=== PATIENT | female | born 1980 | race Caucasian/White ===

== ENCOUNTER 2016-08-18 11:07 | Emergency (ER) | payer SELFPAY ==
[~2016-08-18] VITALS: Ht 167.6 cm; Wt 70.0 kg
[2016-08-18] MEDS ORDERED: NAPROSYN500 MG PO (13:34)
[2016-08-18 13:45] VITALS: BP 112/70
== END 2016-08-18 13:45 | disposition home or self-care (01) | DRG 605 ==
LOC: ED 11:07
DX: S90.32XA Contusion of left foot, initial encounter (principal); W22.8XXA Striking against or struck by other objects, initial encounter; Y92.009 Unspecified place in unspecified non-institutional (private) residence as the place of occurrence of the external cause

== ENCOUNTER 2017-06-26 17:29 | Emergency (ER) | payer OTHER ==
[~2017-06-26] VITALS: Ht 167.6 cm; Wt 72.4 kg
[~2017-06-26 17:29] MED LIST: NAPROSYN500 MG PO
[2017-06-26 18:03] LABS: URINE BILIRUBIN - DIPSTICK NEGATIVE (NEGATIVE); URINE BLOOD DIPSTICK NEGATIVE (NEGATIVE); URINE CLARITY CLEAR; URINE COLOR YELLOW; URINE GLUCOSE - DIPSTICK NEGATIVE (NEGATIVE); URINE KETONE NEGATIVE (NEGATIVE); URINE LEUK ESTERASE NEGATIVE (Negative); URINE NITRITE - DIPSTICK NEGATIVE (Negative); URINE PH 5.5 (4.5-8.0); URINE PROTEIN - DIPSTICK NEGATIVE (NEG-TRACE); URINE UROBILINOGEN - DIPSTICK 0.2 E.U./dL (0.2)
[2017-06-26] MEDS ORDERED: BACTRIM DS1 TAB PO (18:11)
[2017-06-26] MEDS ORDERED: PYRIDIUM200 MG PO (18:11)
[2017-06-26 18:34] VITALS: BP 127/76
== END 2017-06-26 18:34 | disposition home or self-care (01) | DRG 690 ==
LOC: ED 17:29
PROVIDERS: Emergency Medicine
DX: N34.2 Other urethritis (principal); R30.0 Dysuria; R50.9 Fever, unspecified; R39.15 Urgency of urination

== ENCOUNTER 2020-07-24 | Emergency (ER) | payer SELFPAY ==
[~2020-07-24] MED LIST changes: +BACTRIM DS1 TAB PO; +PYRIDIUM200 MG PO
[2020-07-24] MEDS ORDERED: KEFLEX500 M1 PO (12:12)
[2020-07-24] MEDS ORDERED: BACTRIM DS1 TAB PO (12:12)
== END 2020-07-24 12:32 | disposition home or self-care (01) | DRG 603 ==
DX: L02.31 Cutaneous abscess of buttock (principal); B95.62 Methicillin resistant Staphylococcus aureus infection as the cause of diseases classified elsewhere; F17.210 Nicotine dependence, cigarettes, uncomplicated

== ENCOUNTER 2021-01-04 08:58 | Emergency (ER) | payer SELFPAY ==
[~2021-01-04] VITALS: Ht 167.6 cm; Wt 74.0 kg
[~2021-01-04 08:58] MED LIST changes: +KEFLEX500 M1 PO
[2021-01-04 10:00] LABS: URINE BILIRUBIN - DIPSTICK NEGATIVE (NEGATIVE); URINE BLOOD DIPSTICK NEGATIVE (NEGATIVE); URINE COLOR YELLOW; URINE GLUCOSE - DIPSTICK NEGATIVE (NEGATIVE); URINE KETONE NEGATIVE (NEGATIVE); URINE LEUK ESTERASE NEGATIVE (NEGATIVE); URINE PROTEIN - DIPSTICK NEGATIVE (NEG-TRACE); URINE SPECIFIC GRAVITY <=1.005; URINE UROBILINOGEN - DIPSTICK 0.2 E.U./dL (0.2)
[2021-01-04 10:01] LABS: URINE NITRITE - DIPSTICK NEGATIVE (Negative)
[2021-01-04 10:25] LABS: IMMATURE GRANULOCYTES 0.2 % (0.0-5.0); MEAN CELL VOLUME 97.2 fL CALC (80.0-100.0); MEAN CORPUSCULAR HGB 32.2 pG CALC (26.0-32.0); MEAN CORPUSCULAR HGB CONC 33.1 g/dL CAL (32.0-36.0); NEUT# 5.92 thou/uL (2.00-7.15); RED BLOOD COUNT 4.26 mill/uL (4.20-5.60); RED CELL DISTRI WIDTH 11.6 % (11.5-15.5)
[2021-01-04 10:26] LABS: HEMATOCRIT 41.4 % (37.0-47.0); HEMOGLOBIN 13.7 g/dl (12.0-16.0)
[2021-01-04 10:44] LABS: ALBUMIN 4.8 g/dL (3.2-5.0); ALKALINE PHOSPHATASE 71 u/l (38-126); AMYLASE 69 u/l (30-110); BILIRUBIN, TOTAL 0.5 mg/dL (0.0-1.4); BUN 14 mg/dL (7-17); BUN/CREATININE RATIO 20 (12-20 (CALC)); CHLORIDE 104 mmol/l (95-108); CREATININE 0.7 mg/dL (0.5-1.0); GFR > 60 ML/MIN (>=60 (CALC)); GFR FOR AFR.AMER. > 60 ML/MIN (>=60 (CALC)); LIPASE 62 u/l (23-300); POTASSIUM 3.8 mmol/l (3.5-5.1); SGOT/AST 20 u/l (14-36); SODIUM 137 mmol/l (137-146); TOTAL PROTEIN 7.7 g/dL (6.3-8.2)
[2021-01-04 10:46] LABS: ANION GAP 10 (6-22 (CALC)); CARBON DIOXIDE 27 mmol/l (22-30)
[2021-01-04] MEDS ORDERED: ULTRAM50 MG PO (15:09)
[2021-01-04 15:23] VITALS: BP 130/58
== END 2021-01-04 15:24 | disposition home or self-care (01) | DRG 761 ==
LOC: ED 08:58
DX: N83.201 Unspecified ovarian cyst, right side (principal); F17.200 Nicotine dependence, unspecified, uncomplicated; Z87.440 Personal history of urinary (tract) infections; Z20.822 Contact with and (suspected) exposure to COVID-19
CPT/HCPCS: Q9967

== ENCOUNTER 2022-08-25 19:02 | Emergency (ER) | payer SELFPAY ==
[~2022-08-25] VITALS: Ht 167.6 cm; Wt 71.6 kg
[~2022-08-25 19:02] MED LIST changes: +ULTRAM50 MG PO
[2022-08-25] MEDS ORDERED: CLINDAMYCIN300 M1 PO (23:27)
[2022-08-25] MEDS ORDERED: MOTRIN800 MG PO (23:27)
[2022-08-25 23:56] VITALS: BP 118/69
== END 2022-08-25 23:56 | disposition home or self-care (01) | DRG 605 ==
LOC: ED 19:02
PROC: 0H9QXZZ Drainage of Finger Nail, External Approach (ICD-10-PCS; principal; 2022-08-25)
DX: S60.121A Contusion of right index finger with damage to nail, initial encounter (principal); X58.XXXA Exposure to other specified factors, initial encounter

== ENCOUNTER 2022-09-25 07:43 | Emergency (ER) | payer OTHER ==
[~2022-09-25] VITALS: Ht 167.6 cm; Wt 73.2 kg
[~2022-09-25 07:43] MED LIST changes: +CLINDAMYCIN300 M1 PO; +MOTRIN800 MG PO
[2022-09-25] MEDS ORDERED: AMOX/K CLAV875 M1 PO (08:19)
[2022-09-25 08:50] VITALS: BP 107/71
== END 2022-09-25 08:54 | disposition home or self-care (01) ==
LOC: ED 07:43
DX: S60.450A Superficial foreign body of right index finger, initial encounter (principal); W45.8XXA Other foreign body or object entering through skin, initial encounter; Y92.009 Unspecified place in unspecified non-institutional (private) residence as the place of occurrence of the external cause